=== PATIENT | female | born 1995 | race Caucasian/White ===

== ENCOUNTER 2021-02-26 22:04 | Emergency (ER) | payer BC ==
[2021-02-26] MEDS ORDERED: Sodium Chloride 0.9% 1,000 ML IV ONE (22:26)
[2021-02-26] MEDS ORDERED: Sodium Chloride 0.9% 10 ML Syringe FLUSH PRN (22:26)
[2021-02-26] MEDS ORDERED: Sodium Chloride 0.9% 2.5 ML Syringe FLUSH PRN (22:26)
[2021-02-26] MEDS ORDERED: Ketorolac 30 MG/ML SDV IVPUSH ONE (22:26)
[2021-02-26 22:49] LABS: BLOOD UREA NITROGEN,BUN 11 mg/dL (7.0-18.0); CARBON DIOXIDE,CO2 24.4 mmol/L (21.0-32.0); CHLORIDE,CL 107 mmol/L (98-107); GLUCOSE RANDOM 132 mg/dL (74-106); POTASSIUM,K 3.6 mmol/L (3.5-5.1); SODIUM,NA 142 mmol/L (136-145)
--- NOTE | 2021-02-27 00:13 | EDM.PDOC ---
ED HPI GENERAL MEDICAL PROBLEM - General Chief Complaint: Chest Pain Stated Complaint: CHEST PAIN, TROUBLE BREATHING Time Seen by Provider: 02/26/21 22:21 - History of Present Illness INITIAL COMMENTS - FREE TEXT/NARRATIVE: HISTORY AND PHYSICAL: History of present illness: This is a 25-year-old female with no significant past medical history who presents ER today secondary to acute onset of numbness in her left arm with pain and discomfort in her left arm and left chest that started prior to arrival while she was laying flat. Patient denies any recent fevers, shakes, chills, nausea, vomiting, diarrhea, dysuria, frequency, urgency. Patient denies any abdominal pain. Patient reports no shortness of breath except pain with inspiration. Patient denies any Covid exposures. Patient has any history of DVT/PE. Patient denies any hemoptysis. Patient denies any recent long car rides or trips or sedentary lifestyle. Patient denies any history of hypertension, diabetes, liver, lung, kidney problems. Patient denies any alcohol or drugs. Patient reports he does smoke cigarettes. Review of systems: As per history of present illness and below otherwise all systems reviewed and negative. Past medical history: As per history of present illness and as reviewed below otherwise noncontributory. Surgical history: As per history of present illness and as reviewed below otherwise noncontributory. Social history: No reported history of drug abuse. Family history: As per history of present illness and as reviewed below otherwise noncontributory. Physical exam: This patient was seen and evaluated during the 2019 SARS-CoV-2 novel coronavirus pandemic period. Community viral transmission is ongoing at time of this encounter and the emergency department is operating under pandemic response procedures. Constitutional: Patient is oriented to person, place, and time. Appears well- developed and well-nourished. No distress. HEENT: Moist mucous membranes Head: Normocephalic and atraumatic Eyes: Right eye exhibits no discharge. Left eye exhibits no discharge. No scleral icterus Neck: Normal range of motion. No tracheal deviation present. Cardiovascular: Normal rate and regular rhythm. Pulmonary: Effort normal, no respiratory distress. No wheezing rales or rhonchi Abdominal: No distention Musculoskeletal: Normal range of motion Neurologic: Alert and oriented to person, place and time. Skin: [place], warm and dry. Psychiatric: Normal mood and affect. Behavior is normal. Judgment and thought content normal. Nursing note and vital signs have been reviewed Patient's ER physical exam is significant for reproducible tenderness palpation to her left pectoralis muscles. Patient has pain with motion of her left arm to her arm and chest. Diagnostics: Chest Xray: Normal cardiac silhouette No infiltrates or effusions identified. No PTX No evidence of acute bony fracture. As interpreted by ER MD: Sana February 26, 2021 10:14 PM EKG: As interpreted by ER physician: Sana: Nonspecific ST-T wave abnormalities Normal axis No evidence of ST elevation TX Normal sinus rhythm heart rate of 87 Therapeutics: Toradol 15 mg IV NSS x1 L Assessment and plan: 25-year-old female who presents ER today secondary to reproducible sharp left- sided chest pain that increases with inspiration, cough and motion of her left arm. Patient's ER work-up has been unremarkable with a normal enzymes, normal D-dimer, normal CBC, CMP, normal chest x-ray and EKG. Patient's pulse ox was 99% on room air. Patient's Covid test was negative. After Toradol and IV fluids patient reports that her symptoms have completely resolved. At this time, I feel the patient will be stable for discharge home with a continued outpatient evaluation for symptoms with her primary care physician. Reassessment at the time of disposition demonstrates that the patient is in no acute distress. The patient has remained stable throughout the entire ED visit and is without objective evidence for acute process requiring urgent intervention or hospitalization. The patient is stable for discharge, counseling is provided as documented above, discussed symptomatic treatment and specific conditions for return. I have spoken with the patient/caregiver and discussed todays findings, in addition to providing specific details for the plan of care. Questions are answered and there is agreement with the plan. Definitive disposition and diagnosis as appropriate pending reevaluation and review of above. Chest Pain Score (Numeric/FACES): 9 - Related Data Allergies Allergy/AdvReac Type Severity Reaction Status Date / Time No Known Allergies Allergy Verified 02/26/21 22:14 Home Meds: Home Meds . [No Known Home Meds] 02/26/21 [History] Past Medical History - Past Health History Medical/Surgical History: Denies Medical/Surgical History HEENT History: Reports: None Cardiovascular History: Reports: None Respiratory History: Reports: None Gastrointestinal History: Reports: None Genitourinary History: Reports: None Musculoskeletal History: Reports: None Neurological History: Reports: None Psychiatric History: Reports: None Endocrine/Metabolic History: Reports: None Hematologic History: Reports: None Immunologic History: Reports: None Dermatologic History: Reports: None - Infectious Disease History Infectious Disease History: Reports: None - Past Surgical History Head Surgeries/Procedures: Reports: None HEENT Surgical History: Reports: None Cardiovascular Surgical History: Reports: None Respiratory Surgical History: Reports: None GI Surgical History: Reports: None Female Surgical History: Reports: None Endocrine Surgical History: Reports: None Musculoskeletal Surgical History: Reports: None Oncologic Surgical History: Reports: None Dermatological Surgical History: Reports: None Social & Family History - Tobacco Use Tobacco Use Status *Q: Light Tobacco User Years of Tobacco use: 10 Packs/Tins Daily: 0 Second Hand Smoke Exposure: No - Caffeine Use Caffeine Use: Reports: None - Recreational Drug Use Recreational Drug Use: No ED ROS GENERAL - Review of Systems Review Of Systems: See Below ED EXAM, GENERAL - Physical Exam Exam: See Below Course - Vital Signs Last Recorded V/S: Last Vital Signs Temp 98.3 F 02/26/21 22:14 Pulse 102 H 02/26/21 22:14 Resp 15 02/26/21 22:14 BP 124/86 02/26/21 22:14 Pulse Ox 100 02/26/21 22:14 - Orders/Labs/Meds Orders: Active Orders 24 hr Category Date Time Status Chest 2V [CR] Stat Exams 02/26/21 22:18 Taken Sodium Chloride 0.9% [Saline Flush] Med 02/26/21 22:26 Active 10 ml FLUSH ASDIRECTED PRN Sodium Chloride 0.9% [Saline Flush] Med 02/26/21 22:26 Active 2.5 ml FLUSH ASDIRECTED PRN Saline Lock Insert [OM.PC] Stat Oth 02/26/21 22:26 Ordered Medication Orders Sodium Chloride (Sodium Chloride 0.9% 10 Ml Syringe) 10 ml FLUSH ASDIRECTED PRN PRN Reason: Keep Vein Open Sodium Chloride (Sodium Chloride 0.9% 2.5 Ml Syringe) 2.5 ml FLUSH ASDIRECTED PRN PRN Reason: Keep Vein Open Labs: Laboratory Tests 02/26/21 02/26/21 02/26/21 Range/Units 22:25 22:25 22:25 WBC 6.74 (4.0-11.0) K/uL RBC 4.29 L (4.30-5.90) M/uL Hgb 13.1 (12.0-16.0) g/dL Hct 38.4 (36.0-46.0) % MCV 89.5 (80.0-98.0) fL MCH 30.5 (27.0-32.0) pg MCHC 34.1 (31.0-37.0) g/dL RDW Std Deviation 44.4 (28.0-62.0) fl RDW Coeff of David 14 (11.0-15.0) % Plt Count 273 (150-400) K/uL MPV 10.40 (7.40-12.00) fL Neut % (Auto) 46.4 L (48.0-80.0) % Lymph % (Auto) 44.8 H (16.0-40.0) % [place] % (Auto) 6.5 (0.0-15.0) % Eos % (Auto) 1.9 (0.0-7.0) % Baso % (Auto) 0.4 (0.0-1.5) % Neut # (Auto) 3.1 (1.4-5.7) K/uL Lymph # (Auto) 3.0 H (0.6-2.4) K/uL [place] # (Auto) 0.4 (0.0-0.8) K/uL Eos # (Auto) 0.1 (0.0-0.7) K/uL Baso # (Auto) 0.0 (0.0-0.1) K/uL Nucleated RBC % 0.0 /100WBC Nucleated RBCs # 0 K/uL D-Dimer, Quantitative 0.21 (0.0-0.50) mg/L FEU Sodium 142 (136-145) mmol/L Potassium 3.6 (3.5-5.1) mmol/L Chloride 107 (98-107) mmol/L Carbon Dioxide 24.4 (21.0-32.0) mmol/L BUN 11 (7.0-18.0) mg/dL Creatinine 0.9 (0.6-1.0) mg/dL Est Cr Clr Drug Dosing 98.07 mL/min Estimated GFR (MDRD) > 60.0 ml/min Glucose 132 H (74-106) mg/dL Calcium 8.6 (8.5-10.1) mg/dL Total Bilirubin 0.3 (0.2-1.0) mg/dL AST 14 L (15-37) IU/L ALT 15 (14-63) IU/L Alkaline Phosphatase 59 (46-116) U/L Troponin I < 0.050 (0.000-0.056) ng/mL Total Protein 7.2 (6.4-8.2) g/dL Albumin 3.9 (3.4-5.0) g/dL Globulin 3.3 (2.6-4.0) g/dL Albumin/Globulin Ratio 1.2 (0.9-1.6) SARS-CoV-2 RNA (WILEY) (NEGATIVE) 02/26/21 Range/Units 22:30 WBC (4.0-11.0) K/uL RBC (4.30-5.90) M/uL Hgb (12.0-16.0) g/dL Hct (36.0-46.0) % MCV (80.0-98.0) fL MCH (27.0-32.0) pg MCHC (31.0-37.0) g/dL RDW Std Deviation (28.0-62.0) fl RDW Coeff of David (11.0-15.0) % Plt Count (150-400) K/uL MPV (7.40-12.00) fL Neut % (Auto) (48.0-80.0) % Lymph % (Auto) (16.0-40.0) % [place] % (Auto) (0.0-15.0) % Eos % (Auto) (0.0-7.0) % Baso % (Auto) (0.0-1.5) % Neut # (Auto) (1.4-5.7) K/uL Lymph # (Auto) (0.6-2.4) K/uL [place] # (Auto) (0.0-0.8) K/uL Eos # (Auto) (0.0-0.7) K/uL Baso # (Auto) (0.0-0.1) K/uL Nucleated RBC % /100WBC Nucleated RBCs # K/uL D-Dimer, Quantitative (0.0-0.50) mg/L FEU Sodium (136-145) mmol/L Potassium (3.5-5.1) mmol/L Chloride (98-107) mmol/L Carbon Dioxide (21.0-32.0) mmol/L BUN (7.0-18.0) mg/dL Creatinine (0.6-1.0) mg/dL Est Cr Clr Drug Dosing mL/min Estimated GFR (MDRD) ml/min Glucose (74-106) mg/dL Calcium (8.5-10.1) mg/dL Total Bilirubin (0.2-1.0) mg/dL AST (15-37) IU/L ALT (14-63) IU/L Alkaline Phosphatase (46-116) U/L Troponin I (0.000-0.056) ng/mL Total Protein (6.4-8.2) g/dL Albumin (3.4-5.0) g/dL Globulin (2.6-4.0) g/dL Albumin/Globulin Ratio (0.9-1.6) SARS-CoV-2 RNA ([facility]) NEGATIVE (NEGATIVE) Meds: Medications Generic Name Dose Route Start Last Admin Trade Name Freq PRN Reason Stop Dose Admin Sodium Chloride 10 ml 02/26/21 22:26 Sodium Chloride 0.9% 10 Ml Syringe FLUSH ASDIRECTED PRN Keep Vein Open Sodium Chloride 2.5 ml 02/26/21 22:26 Sodium Chloride 0.9% 2.5 Ml Syringe FLUSH ASDIRECTED PRN Keep Vein Open Discontinued Medications Generic Name Dose Route Start Last Admin Trade Name Freq PRN Reason Stop Dose Admin Sodium Chloride 1,000 mls @ 999 mls/hr 02/26/21 22:26 02/26/21 22:47 Normal Saline IV 02/26/21 23:26 999 mls/hr .Bolus ONE Administration Ketorolac Tromethamine 30 mg 02/26/21 22:26 02/26/21 22:47 Ketorolac 30 Mg/Ml Sdv IVPUSH 02/26/21 22:27 30 mg ONETIME ONE Administration Departure - Departure Time of Disposition: 00:12 Disposition: Home, Self-Care 01 Condition: Good Clinical Impression: Nonspecific chest pain, Musculoskeletal chest pain - Discharge Information Instructions: Chest Wall Pain, [id number], Nonspecific Chest Pain, Adult Referrals: PCP,None [Primary Care Provider] - Additional Instructions: You were seen and evaluated in ER today secondary to atypical left-sided chest pain and left arm pain. Your evaluation in the ER did not reveal any causes to your pain. Your EKG and heart enzymes were both normal. Your chest x-ray and test for blood clots in your lungs were both negative. Your Covid test is negative. All your electrolytes and hemoglobin and kidney function were all normal. In the ER you were given 1 L of normal saline as well as a dose of Toradol IV to help with your pain. The etiology of your pain at this time is unclear however it seems to be unlikely from your heart, lungs, or other life- threatening causes. Please make an appointment to follow-up with your family doctor this week for reevaluation. Please return to the ER if you develop any new or concerning symptoms. The following information is given to patients seen in the emergency department who are being discharged to home. This information is to outline your options for follow-up care. We provide all patients seen in our emergency department with a follow-up referral. The need for follow-up, as well as the timing and circumstances, are variable depending upon the specifics of your emergency department visit. If you don't have a primary care physician on staff, we will provide you with a referral. We always advise you to contact your personal physician following an emergency department visit to inform them of the circumstance of the visit and for follow-up with them and/or the need for any referrals to a consulting specialist. The emergency department will also refer you to a specialist when appropriate. This referral assures that you have the opportunity for follow-up care with a specialist. All of these measure are taken in an effort to provide you with optimal care, which includes your follow-up. Under all circumstances we always encourage you to contact your private physician who remains a resource for coordinating your care. When calling for follow-up care, please make the office aware that this follow-up is from your recent emergency room visit. If for any reason you are refused follow-up, please contact the [facility] Emergency Department at and asked to speak to the emergency department charge nurse. Neftali Estefani [facility] - Primary Care [address] [place] [id number] [facility] [address] [place] [id number] Sepsis Event Note (ED) - Focused Exam Vital Signs: Vital Signs Temp Pulse Resp BP Pulse Ox 02/26/21 22:14 98.3 F 102 H 15 124/86 100 - My Orders Last 24 Hours: My Active Orders 02/26/21 22:18 Chest 2V [CR] Stat 02/26/21 22:26 Sodium Chloride 0.9% [Saline Flush] 10 ml FLUSH ASDIRECTED PRN Sodium Chloride 0.9% [Saline Flush] 2.5 ml FLUSH ASDIRECTED PRN Saline Lock Insert [OM.PC] Stat - Assessment/Plan Last 24 Hours: My Active Orders 02/26/21 22:18 Chest 2V [CR] Stat 02/26/21 22:26 Sodium Chloride 0.9% [Saline Flush] 10 ml FLUSH ASDIRECTED PRN Sodium Chloride 0.9% [Saline Flush] 2.5 ml FLUSH ASDIRECTED PRN Saline Lock Insert [OM.PC] Stat
--- NOTE | 2021-02-27 00:16 | CR ---
Indication: Cough Technique: Chest 2 views Comparison: None Findings/Impression: Cardiovascular and mediastinum: Heart size and vasculature are normal in caliber and appearance. Mediastinum is within normal limits. Lungs and pleural spaces: Lungs are clear. No sign of infiltrate or mass. No sign of pleural effusion. No pneumothorax. Bones and soft tissues: No significant findings. Dictated by Alejandro Madison MD @ 02/27/2021 12:15:47 AM (Electronically Signed)
== END 2021-02-27 00:21 | disposition home or self-care (01) ==
LOC: MW.ED 22:04
DX: R07.9 Chest pain, unspecified (principal); Z72.0 Tobacco use; Z20.822 Contact with and (suspected) exposure to COVID-19
CPT/HCPCS: 36415; 71046; 80053; 84484; 85025; 85379; 87635; 93005; 96374; 99285; J1885; J7030; U0002

== ENCOUNTER 2023-02-19 10:54 | Inpatient (IN) | payer BC ==
[2023-02-19] MEDS ORDERED: Tranexamic Acid IN NACL,ISO-OS 1,000 MG in Premix Bag 1 BAG IV PRN ×2 (11:02)
[2023-02-19] MEDS ORDERED: Lidocaine 1% 50 ML MDV INJECT PRN (11:02)
[2023-02-19] MEDS ORDERED: Sodium Chloride 0.9% 10 ML Syringe FLUSH PRN (11:02)
[2023-02-19] MEDS ORDERED: Carboprost Tromethamine 250 MCG/1 mL Vial IM PRN (11:02)
[2023-02-19] MEDS ORDERED: Sodium Chloride 0.9% 20 ML SDV IV PRN (11:02)
[2023-02-19] MEDS ORDERED: Methylergonovine 0.2 MG/1 ML Amp IM PRN (11:02)
[2023-02-19] MEDS ORDERED: Sodium Chloride 0.9% 2.5 ML Syringe FLUSH PRN (11:02)
[2023-02-19] MEDS ORDERED: Misoprostol 200 MCG Tab PO PRN (11:02)
[2023-02-19] MEDS ORDERED: Water For Irrigation,Sterile 1,000 ML Container IRR PRN (11:02)
[2023-02-19] MEDS ORDERED: Butorphanol 1 MG/ML SDV IVPUSH PRN (11:02)
[2023-02-19] MEDS ORDERED: Misoprostol 25 MCG (1/4 of 100 MCG) Tab VAG PRN ×2 (11:04)
[2023-02-19] MEDS ORDERED: Terbutaline 1 MG/ML SDV SUBCUT PRN (11:04)
[2023-02-19] MEDS ORDERED: Oxytocin/0.9 % Sodium Chloride 30 UNIT/500 ML BAG IV SCH ×2 (11:15)
[2023-02-19] MEDS ORDERED: Lactated Ringers 1,000 ML IV SCH (11:15)
[2023-02-19] MEDS ORDERED: Phenylephrine HCl 0.5 MG/5 ML AMP IVPUSH PRN (11:43)
[2023-02-19] MEDS ORDERED: ePHEDrine 50 MG/ML SDV IVPUSH PRN ×2 (11:43)
[2023-02-19] MEDS ORDERED: Ropivacaine HCl/PF 400 MG in Premix Bag 1 BAG EPIDUR SCH (11:45)
[2023-02-19 12:12] LABS: HEMATOCRIT 34.1 % (36.0-46.0); HEMOGLOBIN 11.1 g/dL (12.0-16.0); MEAN CORPUSCULAR HEMOGLOBIN 27.5 pg (27.0-32.0); MEAN CORPUSCULAR HGB CONC 32.6 g/dL (31.0-37.0); MEAN CORPUSCULAR VOLUME 84.6 fL (80.0-98.0); MEAN PLATELET VOLUME 11.3 fL (7.40-12.00); RED BLOOD CELL COUNT 4.03 M/uL (4.30-5.90); WHITE BLOOD CELL COUNT,WBC 7.6 K/uL (4.0-11.0)
[2023-02-19] MEDS ORDERED: Dexmedetomidine 200 MCG/2 ML SDV ONE (19:50)
[2023-02-19] MEDS ORDERED: Witch Hazel Medicated Pads 40/Jar TOP PRN (23:52)
[2023-02-19] MEDS ORDERED: Bisacodyl 10 MG Supp RECTAL PRN (23:52)
[2023-02-19] MEDS ORDERED: Lanolin 100% Cream 7 GM Tube TOP PRN (23:52)
[2023-02-19] MEDS ORDERED: oxyCODONE 5 MG Tab PO PRN (23:52)
[2023-02-19] MEDS ORDERED: Ibuprofen 400 MG Tab PO PRN (23:52)
[2023-02-19] MEDS ORDERED: Acetaminophen 500 MG Tab PO PRN (23:52)
[2023-02-19] MEDS ORDERED: Benzocaine/Menthol 20%-0.5% Spray 78 GM Cannister TOP PRN (23:52)
[2023-02-19 23:58] LABS: PH,UMBILICAL ARTERIAL 7.165 (7.18-7.38)
[2023-02-19 23:59] LABS: PH,UMBILICAL VENOUS 7.348 (7.25-7.45)
[2023-02-20] MEDS ORDERED: Docusate Sodium 100 MG Cap PO PRN (00:01)
[2023-02-20 06:11] LABS: HEMATOCRIT 31.7 % (36.0-46.0); HEMOGLOBIN 10.1 g/dL (12.0-16.0)
[2023-02-20] MEDS: Ibuprofen 800 MG Tab PO PRN ×3 (07:55→22:16)
[2023-02-20] MEDS: Acetaminophen 500 MG Tab PO PRN ×2 (16:25→22:17)
[2023-02-21] MEDS: Ibuprofen 800 MG Tab PO PRN (09:09)
== END 2023-02-21 12:38 | disposition home or self-care (01) | DRG 807 ==
LOC: MW.OB 10:54 → OBSVTOIN 22:54 → MW.OB 22:54
PROVIDERS: ADMIT Obstetrics & Gynecology; ATTEND Obstetrics & Gynecology
PROC: 10E0XZZ Delivery of Products of Conception, External Approach (ICD-10-PCS; principal; 2023-02-19)
PROC: 3E0DXGC Introduction of Other Therapeutic Substance into Mouth and Pharynx, External Approach (ICD-10-PCS; 2023-02-19)
PROC: 3E0P7VZ Introduction of Hormone into Female Reproductive, Via Natural or Artificial Opening (ICD-10-PCS; 2023-02-19)
PROC: 3E033VJ Introduction of Other Hormone into Peripheral Vein, Percutaneous Approach (ICD-10-PCS; 2023-02-19)
PROC: 3E0R3BZ Introduction of Anesthetic Agent into Spinal Canal, Percutaneous Approach (ICD-10-PCS; 2023-02-19)
PROC: 00HU33Z Insertion of Infusion Device into Spinal Canal, Percutaneous Approach (ICD-10-PCS; 2023-02-19)
DX: O80 Encounter for full-term uncomplicated delivery (principal); Z37.0 Single live birth; Z87.891 Personal history of nicotine dependence; Z3A.39 39 weeks gestation of pregnancy
CPT/HCPCS: 01967; 36415; 59025; 59409; 82803; 85014; 85018; 85027; 86592; 86850; 86900; 86901; A9270-GY; J2590; J3490; J7120